=== PATIENT | female | born 1960 | race Caucasian/White ===

== ENCOUNTER 2022-04-30 12:38 | Day surgery (SDC) | payer OTHER ==
[~2022-04-30] VITALS: Ht 172.7 cm; Wt 90.9 kg
[2022-04-30] MEDS ORDERED: ATOR40TA PO (14:19)
[2022-04-30] MEDS ORDERED: ALPR1 PO (14:19)
[2022-04-30] MEDS ORDERED: Ativan1 MG PO (14:21)
[2022-04-30] MEDS ORDERED: IBUP200 PO (14:22)
--- NOTE | 2022-04-30 14:35 | NUR ---
04/30/22 1435 Raya Hicks AT 1440 PLEDGET AT 1442
== END 2022-04-30 15:45 | disposition home or self-care (01) ==
LOC: ORSCSDS 12:38
PROVIDERS: Ophthalmology
PROC: 08RJ3JZ Replacement of Right Lens with Synthetic Substitute, Percutaneous Approach (ICD-10-PCS; principal; 2022-04-30 14:00)
DX: H25.11 Age-related nuclear cataract, right eye (principal); H52.4 Presbyopia; F41.9 Anxiety disorder, unspecified; Z79.899 Other long term (current) drug therapy
CPT/HCPCS: J2001; J2250; J3010; J3301; J7040; V2632

== ENCOUNTER 2022-10-27 09:27 | Emergency (ER) | payer OTHER ==
[~2022-10-27] VITALS: Ht 172.7 cm; Wt 90.7 kg
[~2022-10-27 09:27] MED LIST: ALPR1 PO; ATOR40TA PO; Ativan1 MG PO; IBUP200 PO
[2022-10-27 10:26] LABS: BASOPHILS ABSOLUTE AUTO 0.05 K/mm3 (0.00-0.23); BASOPHILS PERCENT AUTO 1 % (0-2); EOSINOPHILS ABSOLUTE AUTO 0.13 K/mm3 (0.00-0.68); EOSINOPHILS PERCENT AUTO 3 % (0-6); Hematocrit 41.9 % (33.0-51.0); IMMATURE GRAN ABSOLUTE AUTO 0.01 K/mm3 (0.00-0.10); IMMATURE GRAN PERCENT AUTO 0 % (0-1); LYMPHOCYTES ABSOLUTE AUTO 2.13 K/mm3 (0.84-5.20); LYMPHOCYTES PERCENT AUTO 47 % (21-46); MONOCYTES ABSOLUTE AUTO 0.32 K/mm3 (0.16-1.47); MONOCYTES PERCENT AUTO 7 % (4-13); Mean Corpuscular HGB 31.5 pg (26.0-34.0); Mean Corpuscular HGB Conc 33.4 g/dL (31.5-36.5); Mean Corpuscular Volume 94 fL (80-100); Mean Platelet Volume 8.7 fL (9.1-12.4); NEUTROPHILS ABSOLUTE AUTO 1.86 K/mm3 (1.96-9.15); NEUTROPHILS PERCENT AUTO 41 % (41-73); Platelet Count 183 K/mm3 (150-400); RDW Coefficient Variation 12.6 % (11.7-14.2); RDW Standard Deviation 43.8 fL (35.1-46.3); Red Blood Cell Count 4.44 M/mm3 (3.80-5.20)
[2022-10-27 10:52] LABS: Albumin/Globulin Ratio 1.3 (0.8-1.8); Bilirubin, Total 0.5 mg/dL (0.1-1.0); Bun/Creatinine Ratio 14.5 (12.0-20.0); Calcium, Blood 9.3 mg/dL (8.5-10.1); Creatinine, Blood 0.76 mg/dL (0.40-1.00); Globulin, Blood 3.1 g/dL (2.2-4.0); Potassium, Blood 3.8 mmol/L (3.5-5.5); Total Protein, Blood 7.1 g/dL (6.4-8.2)
[2022-10-27] MEDS ORDERED: SEROQUEL25 MG PO (12:19)
[2022-10-27 14:41] LABS: Body Fluid Crystals NEG (NEGATIVE)
[2022-10-27 14:46] LABS: BODY FLUID RBC 0.008 M/mm3 (0-0)
[2022-10-27 14:47] LABS: RBC Count, Synovial Fluid 8000 /mm3 (0-0); WBC Count, Synovial Fluid 290 /mm3 (0-180)
[2022-10-27 15:02] LABS: Appearance, Synovial Fluid Hazy (Clear); Color, Synovial Fluid Dark Yellow (None-P Yel)
[2022-10-27 15:44] LABS: Lymphs, Synovial Fluid 26 % (0-15); Monocytes/Macrophages, Synovia 70 % (0-65); Neutrophils, Synovial Fluid 4 % (0-24)
[2022-10-27 15:54] VITALS: BP 166/76
== END 2022-10-27 15:56 | disposition home or self-care (01) ==
LOC: ER 09:27
PROVIDERS: Physician Assistant; Student in an Organized Health Care Education/Training Program
DX: M96.842 Postprocedural seroma of a musculoskeletal structure following a musculoskeletal system procedure (principal); Y83.8 Other surgical procedures as the cause of abnormal reaction of the patient, or of later complication, without mention of misadventure at the time of the procedure; T84.89XA Other specified complication of internal orthopedic prosthetic devices, implants and grafts, initial encounter; M25.451 Effusion, right hip; Y79.2 Prosthetic and other implants, materials and accessory orthopedic devices associated with adverse incidents; I10 Essential (primary) hypertension; Z79.899 Other long term (current) drug therapy
CPT/HCPCS: 20610; 73502; 76882; 80053; 85025; 85651; 86140; 87070; 87075; 87205; 89051; 89060; 96374-59; 99284-25; A9270; J1885

== ENCOUNTER 2022-11-10 11:16 | Emergency (ER) | payer OTHER ==
[~2022-11-10] VITALS: Ht 172.7 cm; Wt 88.5 kg
[~2022-11-10 11:16] MED LIST changes: +SEROQUEL25 MG PO
[2022-11-10 11:31] VITALS: BP 149/72
[2022-11-10] MEDS ORDERED: METPRE4DP PO (13:19)
[2022-11-10] MEDS ORDERED: HYDR1TAB94 PO (13:19)
== END 2022-11-10 13:33 | disposition home or self-care (01) ==
LOC: ER 11:16
DX: G89.18 Other acute postprocedural pain (principal); M54.31 Sciatica, right side
CPT/HCPCS: 73502; 99283-25

== ENCOUNTER → 2023-05-20 | Outpatient (CLI) | payer OTHER ==
[~2023-05-20] MED LIST changes: +HYDR1TAB94 PO; +METPRE4DP PO
== END ==
LOC: LAB SHORT 08:04 → LAB 08:04
DX: L82.1 Other seborrheic keratosis (principal)
CPT/HCPCS: 88305

== ENCOUNTER 2024-01-12 19:39 | Inpatient (IN) | payer OTHER ==
[~2024-01-12] VITALS: Ht 172.7 cm; Wt 70.9 kg
[2024-01-12] MEDS ORDERED: Aspir 8181 MG PO (19:53)
[2024-01-12] MEDS ORDERED: CELEBREX200 MG PO (19:54)
[2024-01-12] MEDS ORDERED: OXYC5 PO (19:55)
[2024-01-12] MEDS ORDERED: TRAM50 PO (19:55)
[2024-01-12] MEDS ORDERED: ONDA4 PO (19:55)
[2024-01-12 21:32] LABS: BASOPHILS ABSOLUTE AUTO 0.04 K/mm3 (0.00-0.23); BASOPHILS PERCENT AUTO 1 % (0-2); EOSINOPHILS ABSOLUTE AUTO 0.38 K/mm3 (0.00-0.68); EOSINOPHILS PERCENT AUTO 6 % (0-6); Hematocrit 38.1 % (33.0-51.0); Hemoglobin 12.8 g/dL (11.5-16.0); IMMATURE GRAN ABSOLUTE AUTO 0.02 K/mm3 (0.00-0.10); IMMATURE GRAN PERCENT AUTO 0 % (0-1); LYMPHOCYTES ABSOLUTE AUTO 1.62 K/mm3 (0.84-5.20); LYMPHOCYTES PERCENT AUTO 27 % (21-46); MONOCYTES ABSOLUTE AUTO 0.36 K/mm3 (0.16-1.47); MONOCYTES PERCENT AUTO 6 % (4-13); Mean Corpuscular HGB 31.2 pg (26.0-34.0); Mean Corpuscular HGB Conc 33.6 g/dL (31.5-36.5); Mean Corpuscular Volume 93 fL (80-100); Mean Platelet Volume 8.1 fL (9.1-12.4); NEUTROPHILS PERCENT AUTO 60 % (41-73); Platelet Count 237 K/mm3 (150-400); RDW Coefficient Variation 13.3 % (11.7-14.2); RDW Standard Deviation 45.5 fL (35.1-46.3); White Blood Cell Count 6.02 K/mm3 (4.00-11.30)
[2024-01-12 21:49] LABS: Albumin, Blood 3.6 g/dL (3.4-5.0); Albumin/Globulin Ratio 1.1 (0.8-1.8); Bilirubin, Total 0.3 mg/dL (0.1-1.0); Bun/Creatinine Ratio 18.8 (12.0-20.0); Calcium, Blood 8.6 mg/dL (8.5-10.1); Creatinine, Blood 0.59 mg/dL (0.40-1.00); Globulin, Blood 3.3 g/dL (2.2-4.0); Potassium, Blood 4.2 mmol/L (3.5-5.5); Total Protein, Blood 6.9 g/dL (6.4-8.2)
[2024-01-12] MEDS ORDERED: OxyCODONE HCL 5 MG TAB PO PRN (22:35)
[2024-01-12] MEDS ORDERED: Ondansetron HCl 2 MG / ML 2ML Vial IV PRN (22:35)
[2024-01-12] MEDS ORDERED: ALPRAZolam 0.5 MG Tab PO PRN (22:40)
[2024-01-12] MEDS ORDERED: FLU VACC TS2024-25(6MOS UP)/PF 45 MCG/0.5 ML SYRINGE IM SCH (22:40)
[2024-01-12] MEDS ORDERED: Acetaminophen 325 MG TABLET PO PRN (22:40)
[2024-01-12] MEDS ORDERED: Lactated Ringer's 1,000 ML IV SCH (23:00)
[2024-01-12] MEDS ORDERED: Ketorolac Tromethamine 15mg Vial IV PRN (23:05)
[2024-01-12 23:25] LABS: International Normalized Ratio 0.98; Prothrombin Time Results 10.5 Sec (9.7-11.5)
[2024-01-12] MEDS ORDERED: GYNE LOTRIMIN TOP (23:33)
[2024-01-12] MEDS ORDERED: ALPRAZOLAM110 PO (23:37)
[2024-01-12] MEDS ORDERED: ALPRAZolam 1 MG Tab PO PRN (23:55)
[2024-01-13] VITALS (18 sets, daily range): BP systolic 97–152; BP diastolic 61–84
--- NOTE | 2024-01-13 01:38 | NUR ---
Patient arrived to room from ED around 0005 via gurney, transferred to bed via slide sheet, tolerated fairly. Admission process completed at bedside, patient appears to be intoxicated, responding with hyperverbose comments, using excessive volume, voicing focus on drinking water and outpatient therapy scheduling for previous hip replacement. Patient mobilizing self in bed with minimal assistance, requesting medication assistance for sleep. IV fluids initiated as ordered. Vatler system in place per patient request. Bed alarm activated, call light within reach, patient insistent on door being closed r/t noise in hallway. Will continue to monitor.
--- NOTE | 2024-01-13 05:44 | NUR ---
Patient alert and oriented x3, VSS, continues to act mildly intoxicated. Patient compliant with care, tolerating pain level, Purewick in place. Patient anticipating surgery later today.
[2024-01-13 05:47] LABS: BASOPHILS ABSOLUTE AUTO 0.06 K/mm3 (0.00-0.23); BASOPHILS PERCENT AUTO 1 % (0-2); EOSINOPHILS ABSOLUTE AUTO 0.45 K/mm3 (0.00-0.68); EOSINOPHILS PERCENT AUTO 8 % (0-6); Hematocrit 36.9 % (33.0-51.0); Hemoglobin 12.1 g/dL (11.5-16.0); IMMATURE GRAN ABSOLUTE AUTO 0.01 K/mm3 (0.00-0.10); IMMATURE GRAN PERCENT AUTO 0 % (0-1); LYMPHOCYTES ABSOLUTE AUTO 2.14 K/mm3 (0.84-5.20); LYMPHOCYTES PERCENT AUTO 38 % (21-46); MONOCYTES ABSOLUTE AUTO 0.48 K/mm3 (0.16-1.47); MONOCYTES PERCENT AUTO 9 % (4-13); Mean Corpuscular HGB 30.7 pg (26.0-34.0); Mean Corpuscular HGB Conc 32.8 g/dL (31.5-36.5); Mean Corpuscular Volume 94 fL (80-100); Mean Platelet Volume 8.4 fL (9.1-12.4); NEUTROPHILS ABSOLUTE AUTO 2.46 K/mm3 (1.96-9.15); NEUTROPHILS PERCENT AUTO 44 % (41-73); Platelet Count 246 K/mm3 (150-400); RDW Coefficient Variation 13.4 % (11.7-14.2); RDW Standard Deviation 46.2 fL (35.1-46.3); Red Blood Cell Count 3.94 M/mm3 (3.80-5.20)
[2024-01-13 06:17] LABS: Albumin, Blood 3.4 g/dL (3.4-5.0); Albumin/Globulin Ratio 1.1 (0.8-1.8); Bilirubin, Total 0.4 mg/dL (0.1-1.0); Bun/Creatinine Ratio 16.4 (12.0-20.0); Calcium, Blood 8.7 mg/dL (8.5-10.1); Creatinine, Blood 0.61 mg/dL (0.40-1.00); Globulin, Blood 3.1 g/dL (2.2-4.0); Magnesium, Blood 1.9 mg/dL (1.6-2.4); Potassium, Blood 4.1 mmol/L (3.5-5.5); Total Protein, Blood 6.5 g/dL (6.4-8.2)
[2024-01-13] MEDS ORDERED: ChlordiazePOXIDE 25 MG Cap PO PRN (07:45)
[2024-01-13] MEDS ORDERED: LORazepam 2 MG/ML 1ML Injection IV PRN (07:50)
[2024-01-13] MEDS ORDERED: Atorvastatin 40 MG Tab PO SCH (09:00)
[2024-01-13] MEDS ORDERED: Docusate Sodium 100 MG Cap PO SCH (09:00)
[2024-01-13] MEDS ORDERED: Thiamine HCl 100 MG in NS 50 ML IV SCH (12:00)
[2024-01-13] MEDS ORDERED: Folic Acid 1 MG in NS 50 ML IV SCH (12:00)
--- NOTE | 2024-01-13 13:48 | NUR ---
PATIENT TAKEN DOWN TO DAY SURGERY FOR A L TOTAL HIP REPLACEMENT. PATIENT TO GO TO SURGICAL FLOOR POST OP. REQUEST FOR INFORMATION SENT TO [facility] IN [place] FOR RECORDS FROM RECENT R TOTAL HIP REPLACEMENT. BELONGINGS REMAIN IN ROOM, WILL TAKE DOWN WHEN ROOM ASSIGNED.
[2024-01-13] MEDS ORDERED: CeFAZolin Sodium 2,000 MG in NS 100 ML IV SCH (14:55)
[2024-01-13] MEDS ORDERED: Tranexamic Acid 100 ML IV SCH (14:55)
[2024-01-13] MEDS ORDERED: HYDROmorphone HCl/Pf 1MG SYR ONE (15:12)
[2024-01-13] MEDS ORDERED: Phenylephrine HCl 100 MCG/ML-NS 10MLSYR (1MG/10ML) ONE (15:12)
[2024-01-13] MEDS ORDERED: Ondansetron HCl 2 MG / ML 2ML Vial ONE (15:12)
[2024-01-13] MEDS ORDERED: propofoL 20 ML IV ONE (15:12)
[2024-01-13] MEDS ORDERED: FentaNYL Citrate 50 MCG/ML 2 ML Injection ONE (15:12)
[2024-01-13] MEDS ORDERED: Dexamethasone Sod Phos 10 MG/ML 1ML VIAL ONE (15:12)
--- NOTE | 2024-01-13 15:23 | NUR ---
REPORT CALLED TO [facility] ON SURGICAL FLOOR AND PATIENT BELONGINGS TAKEN DOWN TO ROOM 215.
[2024-01-13] MEDS ORDERED: Midazolam HCl 1MG / ML 2ML Vial ONE ×2 (15:27→15:44)
[2024-01-13] MEDS ORDERED: ePHEDrine Sulfate 50 MG/ML 1ML Injection ONE (15:50)
[2024-01-13] MEDS ORDERED: propofoL 40 ML IV ONE (16:10)
[2024-01-13] MEDS ORDERED: Ketorolac Tromethamine 30mg Vial ONE (18:07)
--- NOTE | 2024-01-13 18:52 | NUR ---
Pt arrived to the floor in hospital bed. POD 0 L Hip Bran. A&O x4, VSS, PPP, pleasent mood. Incision covered with Aquacel C/D/I no drainage noted. Declines any n/v, n/t. Wedge remains in place. Drinks and snacks at bedside. Call light within reach. Care transfered to Carmelita MCKEON at this time.
[2024-01-13] MEDS ORDERED: ALPRAZolam 0.5 MG Tab PO PRN (20:20)
[2024-01-14] MEDS ORDERED: CeFAZolin Sodium 2,000 MG in NS 100 ML IV SCH
[2024-01-14 03:13] VITALS: BP 123/61
[2024-01-14 04:02] LABS: BASOPHILS ABSOLUTE AUTO 0.01 K/mm3 (0.00-0.23); BASOPHILS PERCENT AUTO 0 % (0-2); EOSINOPHILS PERCENT AUTO 0 % (0-6); Hematocrit 30.9 % (33.0-51.0); Hemoglobin 10.5 g/dL (11.5-16.0); IMMATURE GRAN ABSOLUTE AUTO 0.02 K/mm3 (0.00-0.10); IMMATURE GRAN PERCENT AUTO 0 % (0-1); LYMPHOCYTES ABSOLUTE AUTO 0.51 K/mm3 (0.84-5.20); LYMPHOCYTES PERCENT AUTO 7 % (21-46); MONOCYTES ABSOLUTE AUTO 0.49 K/mm3 (0.16-1.47); MONOCYTES PERCENT AUTO 7 % (4-13); Mean Corpuscular HGB 31.4 pg (26.0-34.0); Mean Corpuscular Volume 93 fL (80-100); Mean Platelet Volume 8.2 fL (9.1-12.4); NEUTROPHILS ABSOLUTE AUTO 5.83 K/mm3 (1.96-9.15); NEUTROPHILS PERCENT AUTO 85 % (41-73); Platelet Count 184 K/mm3 (150-400); RDW Coefficient Variation 13.2 % (11.7-14.2); RDW Standard Deviation 45.6 fL (35.1-46.3); Red Blood Cell Count 3.34 M/mm3 (3.80-5.20); White Blood Cell Count 6.86 K/mm3 (4.00-11.30)
[2024-01-14 04:23] LABS: Calcium, Blood 8.3 mg/dL (8.5-10.1); Creatinine, Blood 0.61 mg/dL (0.40-1.00)
--- NOTE | 2024-01-14 06:50 | NUR ---
SHIFT SUMMARY NOC. PT POD 1 FOR LEFT ROSAURA HIP. PT MEDICATED FOR PAIN WITH REPORTED RELIEF. VOIDING URINE, TOLERATING DIET. AQUACEL C/D/I. PT WBAT WITH POSTERIOR HIP PRECAUTIONS. PT AMBULATED IN THE HALLS THIS SHIFT. PT ANXIOUS AT TIMES THIS SHIFT, IMPROVED WITH COMMUNICATION AND ANXIETY MEDS. PT RESTED WITH CALL LIGHT IN REACH.
[2024-01-14 07:21] VITALS: BP 117/59
[2024-01-14] MEDS ORDERED: Aspirin 81 MG TabEC PO SCH (08:00)
[2024-01-14] MEDS ORDERED: Enoxaparin 40 MG/0.4 ML SYR SC SCH (12:00)
--- NOTE | 2024-01-14 16:52 | NUR ---
DISCHARGE SUMMARY POD1 L PAULA, A/OX4, VSS, TOLERATING PO, AMBULATING WELL, PAIN WELL MANAGED PER ELTON LEWIS C/D/I. DISCUSSE DISCHARGE INSTRUCTIONS WITH HER INCLUDING HOME CARE, MEDICATIONS, AND FOLLOW UP APPOINTMENTS. NO QUESTIONS AT THIS TIME, IV REMOVE DURING DC INSTRUCTIONS, 2 ADDITIONAL DRESSINGS PROVIDED FOR HOME CHANGES. ESCORTED OUT VIA WC TO PRIVATE AUTO TO GO HOME.
== END 2024-01-14 14:40 | disposition home health service (06) | DRG 522 ==
LOC: ER 19:39 → MEDS 22:32 → SURS 01-13 14:44
PROVIDERS: Family Medicine Adult Medicine; Orthopaedic Surgery Sports Medicine; Student in an Organized Health Care Education/Training Program; ADMIT Student in an Organized Health Care Education/Training Program
PROC: 0SRB0JZ Replacement of Left Hip Joint with Synthetic Substitute, Open Approach (ICD-10-PCS; principal; 2024-01-13 14:00)
DX: S72.042A Displaced fracture of base of neck of left femur, initial encounter for closed fracture (principal); F41.9 Anxiety disorder, unspecified; F10.129 Alcohol abuse with intoxication, unspecified; M54.2 Cervicalgia; G89.29 Other chronic pain; E78.00 Pure hypercholesterolemia, unspecified; F51.04 Psychophysiologic insomnia; M16.11 Unilateral primary osteoarthritis, right hip; M16.7 Other unilateral secondary osteoarthritis of hip; W18.30XA Fall on same level, unspecified, initial encounter; Z98.890 Other specified postprocedural states; Z79.899 Other long term (current) drug therapy; Z79.891 Long term (current) use of opiate analgesic; Z79.82 Long term (current) use of aspirin
CPT/HCPCS: 36415; 72170; 73502; 80048; 80053; 82947; 83735; 85025; 85610; 85730; 93005; 93010; 94760; 96374; 97110; 97116; 97161; 97162; 97166; 97530; 97535; 99285-25; A9270; C1776; G0378; J0690; J1100; J1170; J1885; J2250; J2371; J2405; J2704; J3010; J7120

== ENCOUNTER → 2024-06-14 | Outpatient (CLI) | payer OTHER ==
[~2024-06-14] MED LIST changes: +ALPRAZOLAM110 PO; +Aspir 8181 MG PO; +CELEBREX200 MG PO; +GYNE LOTRIMIN TOP; +ONDA4 PO; +OXYC5 PO; +TRAM50 PO
== END ==
LOC: PLD 13:08 → LAB 13:08 → LAB SHORT 13:08
DX: N90.7 Vulvar cyst (principal)
CPT/HCPCS: 88304